=== PATIENT | female | born 1995 | race African-American/Black ===

== ENCOUNTER 2021-04-13 13:54 | Emergency (ER) | payer SELFPAY ==
[~2021-04-13] VITALS: Ht 162.6 cm; Wt 65.8 kg
[2021-04-13 14:17] VITALS: BP 122/66
--- NOTE | 2021-04-13 14:23 | NUR ---
TENT 1
[2021-04-13] MEDS ORDERED: IBUP-2213 PO (14:46)
[2021-04-13] MEDS ORDERED: PENI500T20 PO (14:46)
--- NOTE | 2021-04-13 14:58 | NUR ---
Patient discharged with v/s stable. Written and verbal after care instructions given and explained. Patient alert, oriented and verbalized understanding of instructions. Ambulatory with steady gait. All questions addressed prior to discharge. ID band removed. Patient advised to follow up with PMD. Rx of PCN V and Ibuprofen given. Patient educated on indication of medication including possible reaction and side effects. Opportunity to ask questions provided and answered.
== END 2021-04-13 14:58 | disposition home or self-care (01) ==
LOC: MED 13:54
DX: J02.0 Streptococcal pharyngitis (principal)
CPT/HCPCS: 99283